=== PATIENT | male | born 1990 | race Caucasian/White ===

== ENCOUNTER 2024-10-17 11:22 | Inpatient (IN) ==
--- NOTE | 2024-10-17 11:52 | Emergency Department Note ---
Impression & Plan Vision loss, left eye, Stroke-like symptom ED Provider Note NAME: WILDER CARTER AGE: 34 SEX: M : 1990 ARRIVES VIA: Walk-In INFORMANT: Patient ED PROVIDER(S): Bert Gutierrez MD CHIEF COMPLAINT: Left eye vision changes. PLAN: Disposition: Admit MEDICAL DECISION MAKING: The patient is a pleasant 34-year-old gentleman, previously healthy who denies any chronic medical conditions other than some seasonal allergies who presents to the emergency department via walk-in for evaluation of acute onset of left eye vision changes which he describes as a translucent sheet over his entire field of vision of his left eye where he is able to see but cannot make out details of objects or read. The patient reports feeling some pressure under his left eye yesterday evening around 8 PM which he attributed to some sinus pressure and so took a half a Zyrtec (without decongestant). This morning he noticed his eye symptoms when he woke up. He attempted to look in the mirror covering an eye and then uncovering it and felt as though his left eye was small and would not react. Patient tried taking [id number] eyedrops but had no change in symptoms. He denies any headache, pain or foreign body sensation. He denies any GI or symptoms. Denies chest pain, shortness of breath. He denies any family history of blood clots, aneurysms or autoimmune disorder such as MS in young family members. He reports his grandmother did have medical problems and had a blood clot when she was older. 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 He denies any regular alcohol use. He denies smoking history. Patient reports he did have a lipid panel performed when obtaining life insurance in the past year and understood that he had mildly above normal cholesterol though he is not sure of the details. He understood from his follow-up that this was not significant and could be managed effectively with diet which he reports he had subsequently done. On evaluation the patient no acute distress, afebrile with stable vital signs. At this time the patient does have gross vision intact. Visual castaneda are also grossly intact. Pupils are equal round, reactive to light and accommodating. There is no nystagmus. There is no conjunctival or scleral injection. No proptosis. Visual acuity is significantly impaired in his left eye. 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 EKG without overt acute ischemia. CXR negative for acute cardiopulmonary process per my personal preliminary review/interpretation. WBC, H/H and platelets within normal limits. There is no neutrophilia. Chemistry without metabolic acidosis. Electrolytes and LFTs unremarkable. High-sensitivity troponin is undetectable. UA is unremarkable. ESR is 4, within normal limits. CRP is undetectable. CT of the head and CTA of the head and neck were performed were negative for ICH, ischemia or severe narrowing or occlusion of large vessels. No acute abnormality or explanation for the patient's symptoms otherwise. Bedside retinal scan was performed and per my preliminary independent interpretation there is a suspicious vascular abnormality approximately at the 12 o'clock position adjacent to the optic disc which is suspicious for possible CRAO. See below. Bedside puff tonometry was performed and demonstrates normal IOP's bilaterally with OD 15 and OS 16. Findings and recommendations for admission for further management reviewed with the patient at the bedside. Understandably, the patient had concerns regarding his health insurance and deductible and the fact that he had been in the process of switching plans which to his knowledge would result in a reset of his deductible. Case was reviewed with Dr. Lemon, [facility] neurology on-call. Appreciate consultation and recommendations. Agrees with concerns for possible CRAO and increased risk of stroke and risk for vision loss. Given the patient's initial inclination to potentially declined his admission AGAINST MEDICAL ADVICE we discussed at a minimum obtaining MRI and echo in the emergency department. If MRI does not show altered explanation such as inflammatory/demyelinating process then presumption may be that ischemic process is likely and DAPT for 3 weeks should be initiated with high-dose statin and continuing with low-dose aspirin and high-dose statin thereafter. Following further discussion and review of recommendations for admission the patient did agree with plan to be admitted. Case was discussed with Dr. Spear, [facility] hospitalist who will evaluate the patient for admission. Dr. Lemon was updated on plan for admission. Recommends obtaining MRI first before initiating DAPT. As our facility does not have ophthalmology on-call at this time, Dr. Lemon did attempt to contact [facility] ophthalmology via [employer] to share our retinal scan images for review but was unsuccessful. Further management per admitting team. Triage Nursing notes reviewed and agree them. Prior/external medical records reviewed Vital Signs: reviewed Differential diagnosis: Conjunctivitis, trauma, corneal abrasion, hyphema, glaucoma, iritis, corneal ulcer, dendrite, CRAO, CRVO, vitreous detachment, retinal detachment, as well as other pathologies. ER treatment provided: See below. Diagnostics interpreted by me: ECG: Normal sinus rhythm, 70 bpm, no ectopy, no overt ST elevation or depression, QTc 397, QRS 92. Cardiac Monitoring: An order for continuous cardiac monitoring was placed and demonstrated Normal sinus rhythm, 70 bpm, no ectopy, Laboratory studies: See below Imaging studies: See below Consultation(s): Dr. Lemon, [facility] neurology. Dr. Spear, [facility] hospitalist. HPI: Per MDM. ROS: See above HPI for pertinent positives & negatives. A total of 10 systems reviewed and were otherwise negative. VITALS:See Below PHYSICAL EXAMINATION: GENERAL: Awake, alert, well-appearing, in no distress HENT: Normocephalic, atraumatic. Oropharynx unremarkable. EYES: Normal conjunctiva. Sclera non-icteric. EOMI. No nystamgus. PEARRL. NECK: Supple. No nuchal rigidity. FROM. No JVD. RESPIRATORY: Clear to auscultation. CARDIAC: Regular rate, normal rhythm. No murmur, rubs, or gallops. Extremities warm and well perfused. Pulses equal. ABDOMEN: Soft, non-distended. No tenderness to palpation. No rebound or guarding. No masses. MUSCULOSKELETAL: Chest examination reveals no tenderness. The back is symmetrical on inspection without obvious abnormality. There is no CVA tenderness to palpation. No joint edema. LOWER EXTREMITIES: Calves are equal size bilaterally and non-tender. No edema. No discoloration. NEURO: Cranial nerves II-XII grossly intact. 5/5 strength and SILT x 4 extremities. Cerebellar function intact including [id number]-mx-bmpu, alternating palms, [id number]-[id number]. SKIN: No rash or jaundice noted. Bert Gutierrez MD Past Med/Surg History Problem List (Updated 10/18/24 @ 00:55 by Bert Gutierrez MD) Stroke-like symptom (Acute) Vision loss, left eye (Acute) Medical History History of fracture of clavicle Surgical History History of dental surgery Social History Smoking Status: Never smoker Hx Alcohol Use: Yes Alcohol type: beer Hx Substance Use: No Preferred Language: Angolan Communication Ability: Effective Senior Manager Required: No Beliefs That Will Affect Care: None Current Living Situation: Other Current Living Situation Comment: with his daughter part-time Other Information That Helps Us Care for You: No Feels Safe at Home: Yes Safety Concerns: Feels Safe At This Time Assistive Devices: None Allergies Allergies Allergy/AdvReac Type Severity Reaction Status Date / Time amoxicillin Allergy Hives Verified 02/09/23 16:19 Home Meds Home Medications Medication Instructions Recorded Confirmed cetirizine 10 mg tablet (Zyrtec) 10 mg PO DAILY PRN allergies 10/17/24 10/17/24 ibuprofen 200 mg tablet 200 mg PO DIRECTED PRN Pain 10/17/24 10/17/24 Results & Data (ED) Vital Signs Vital Signs - 24 hr 10/17/24 11:24 10/17/24 15:15 Temperature 36.6 C Temperature Source Temporal Artery Scan Pulse Rate 97 H Pulse Rate [Apical] 62 Pulse Strength Normal Respiratory Rate 16 18 Respiratory Effort / Characteristics Non-Labored Spontaneous Respiratory Depth Normal Respiratory Pattern Regular Blood Pressure 134/78 Blood Pressure [Right Arm] 122/72 Blood Pressure Mean 96 Blood Pressure Mean [Right Arm] 88 Blood Pressure Position Sitting Pulse Oximetry 97 99 Oxygen Delivery Method Room Air Room Air Sepsis Recent Fever Within 48 Hours No Sepsis New/Unexplained Change in Mental Status No Sepsis Action Taken by Nursing No Action Required Laboratory Data Attestation: I reviewed the patient's lab results. 10/17/24 12:00 10/17/24 12:00 Lab Results 10/17/24 10/17/24 10/17/24 Range/Units 11:56 12:00 12:45 WBC 6.98 (4.8-10.8) K/ul RBC 5.09 (4.70-6.10) M/uL Hgb 15.4 (14.0-18.0) g/dl Hct 45.0 (42.0-52.0) % MCV 88.4 (80.0-100.0) fL MCH 30.3 (25.0-34.0) pg MCHC 34.2 (32.0-36.0) g/dL RDW Std Deviation 39.8 (36.4-46.3) fL RDW Coeff of Jason 12.2 (11.5-14.5) % Plt Count 223 (130-400) K/uL MPV 9.7 (9.4-12.4) fL Immature Gran % (Auto) 0.1 % Neut % (Auto) 59.6 % Lymph % (Auto) 28.9 % Reagan % (Auto) 5.9 % Eos % (Auto) 4.6 % Baso % (Auto) 0.9 % Neut # (Auto) 4.16 (1.40-6.50) K/uL Lymph # (Auto) 2.02 (1.20-3.40) K/uL Reagan # (Auto) 0.41 (0.11-0.59) K/uL Eos # (Auto) 0.32 (0.00-0.50) K/uL Baso # (Auto) 0.06 (0.00-0.20) K/uL Immature Gran # (Auto) 0.01 (0.01-0.20) K/uL ESR 4 (0-15) mm/hr PT 10.9 (9.0-12.0) Seconds INR 1.0 (0.9-1.1) APTT 27 (21-31) Seconds PTT Ratio 1.0 Sodium 141 (136-145) mmol/L Potassium 4.3 (3.5-5.1) mmol/L Chloride 105 (98-107) mmol/L Carbon Dioxide 30 (21-32) mmol/L Anion Gap 6 (3-11) BUN 18 (6-23) mg/dl Creatinine 1.02 (0.6-1.4) mg/dl Est Cr Clr Drug Dosing 89.2 ml/min eGFR 97.68 BUN/Creatinine Ratio 17.6 (10-20) Glucose 86 (70-99(Fasting)) mg/dl POC Glucose 80 (70-99) mg/dl Calcium 10.0 (8.6-10.3) mg/dl Magnesium 2.2 (1.7-2.4) mg/dl Total Bilirubin 0.7 (0.2-1.0) mg/dl AST 29 (13-39) U/L ALT 24 (7-52) U/L Alkaline Phosphatase 59 (34-104) U/L Troponin I High Sens < 2.3 (0-20) pg/ml C-Reactive Protein < 0.50 (0-0.5) mg/dl Total Protein 8.0 (6.0-8.3) gm/dl Albumin 4.9 (3.4-5.0) gm/dl Globulin 3.1 (2.5-4.0) gm/dl Albumin/Globulin Ratio 1.6 (0.9-2) Urine Color Yellow Urine Appearance Cloudy A (Clear) Urine pH 8.0 H (4.5-7.5) Ur Specific [place] 1.023 (1.000-1.030) Urine Protein Negative (Negative) Urine Glucose (UA) Negative (Negative) Urine Ketones Trace H (Negative) Urine Blood Negative (Negative) Urine Nitrite Negative (Negative) Urine Bilirubin Negative (Negative) Urine Urobilinogen Negative (Negative) Ur Leukocyte Esterase Negative (Negative) Urine WBC (Auto) 0-5 (0-5) /hpf Urine RBC (Auto) 0-2 (0-2) /hpf U Hyaline Cast (Auto) 0-2 (0-2) /lpf U Epithel Cells (Auto) 0-2 (0-2) /hpf Urine Bacteria (Auto) None Seen (None Seen) Urine Comment Administered Medications Sodium Chloride (Nss) 1,000 mls @ 125 mls/hr IV .Q8H SAURABH Stop: 10/18/24 18:14 Last Admin: 10/17/24 19:52 Dose: 125 mls/hr Documented By: NRB Discontinued Medications Artificial Tears (Artificial Tears) 1 drops OPB NOW STA Stop: 10/17/24 11:48 Last Admin: 10/17/24 12:02 Dose: 1 drops Documented By: LATHA Gadobutrol (Gadobutrol 30ml Vial) 6.5 ml IV ONCE ONE Stop: 10/17/24 19:24 Last Admin: 10/17/24 19:24 Dose: 6.5 ml Documented By: JOSH Sodium Chloride (Nss) 1,000 mls @ 999 mls/hr IV .Q1H1M ONE Stop: 10/17/24 12:47 Last Infusion: 10/17/24 13:06 Dose: Infused Documented By: Admin: 10/17/24 12:02 Dose: 999 mls/hr Documented By: LATHA Ioversol (Optiray 320 125ml) 112 ml IV ONCE ONE Stop: 10/17/24 12:52 Last Admin: 10/17/24 12:51 Dose: 112 ml Documented By: JEAN Ondansetron HCl (Ondansetron Inj 2 Mg/Ml 2 Ml Vial) 4 mg IV NOW STA Stop: 10/17/24 13:16 Last Admin: 10/17/24 19:52 Dose: Not Given Documented By: NRHarshad Imaging Data Radiologist's Impression: Chest X-Ray 10/17/24 11:47 EXAM: Radiograph of the Chest 1 View INDICATION: Neurologic deficit TECHNIQUE: Frontal view of the chest. COMPARISON: No relevant prior studies available. FINDINGS: Lungs and pleural spaces: No consolidation or pulmonary edema. No pleural effusion or pneumothorax. Heart: Shape and configuration within normal limits allowing for technique. Mediastinum: Normal contour. Bones/joints: Fixation screw left clavicle intact and well-seated. Left clavicular shaft fracture healed without significant deformity. No acute osseous abnormality. Soft tissues: No abnormality noted. No radiopaque foreign body noted. Upper abdomen: No abnormality noted. IMPRESSION: No acute cardiopulmonary disease. ACT 112: N/A Electronically signed by Viv Baldwin 10-17-2024 12:[address] 10/17/24 11:47 EXAM: CT Head Without Intravenous Contrast INDICATION: Unspecified neurologic deficit TECHNIQUE: Axial computed tomography images of the head/brain without intravenous contrast. Sagittal and/or coronal reformats are provided. Sagittal and coronal reformatted images were created and reviewed. This CT exam was performed using one or more of the following dose reduction techniques: automated exposure control, adjustment of the mA and/or kV according to patient size, and/or use of iterative reconstruction technique. COMPARISON: No relevant prior studies available. FINDINGS: Limitations: None. Brain and extra-axial spaces: No abnormality noted. No hemorrhage. No significant white matter disease. No edema. No ventriculomegaly. Bones/joints: No acute changes. Soft tissues: No significant abnormality noted. Vasculature: No acute abnormality noted. Sinuses: No layering fluid in the visualized portions of the paranasal sinuses. Mastoid air cells: No mastoid effusion. Orbits: No significant abnormality noted. IMPRESSION: No abnormality noted. ACT 112: N/A Electronically signed by Viv Baldwin 10-17-2024 13:26 PM Head CTA 10/17/24 11:47 EXAM: CT Angiography Head and Neck With Intravenous Contrast INDICATION: Unspecified neurologic deficit TECHNIQUE: [place] of [place]/head and neck CT angiography protocol performed with intravenous contrast. Sagittal and coronal reformatted images were created and reviewed. This CT exam was performed using one or more of the following dose reduction techniques: automated exposure control, adjustment of the mA and/or kV according to patient size, and/or use of iterative reconstruction technique. MIP reconstructed images were created and reviewed. CONTRAST: 110ml of Optiray 320 was administered intravenously. COMPARISON: None. FINDINGS: HEAD: Right anterior cerebral artery: No abnormality noted. No occlusion or significant stenosis. Anterior communicating artery is present. No aneurysm. Right middle cerebral artery: No abnormality noted. No occlusion or significant stenosis. No aneurysm. Right posterior cerebral artery: No abnormality noted. No occlusion or significant stenosis. No aneurysm. Right intracranial internal carotid artery: No abnormality noted. No significant stenosis. No dissection or occlusion. Right intracranial vertebral artery: No abnormality noted. No significant stenosis. No dissection or occlusion. Left anterior cerebral artery: No abnormality noted. No occlusion or significant stenosis. No aneurysm. Left middle cerebral artery: No abnormality noted. No occlusion or significant stenosis. No aneurysm. Left posterior cerebral artery: No abnormality noted. No occlusion or significant stenosis. No aneurysm. Left intracranial internal carotid artery: No abnormality noted. No significant stenosis. No dissection or occlusion. Left intracranial vertebral artery: No abnormality noted. No significant stenosis. No dissection or occlusion. Basilar artery: No abnormality noted. No occlusion or significant stenosis. No aneurysm. Other vasculature: Patent dural venous sinuses. No vascular malformation. NECK: Right common carotid artery: No abnormality noted. No significant stenosis. No dissection or occlusion. Right extracranial internal carotid artery: No abnormality noted. No significant stenosis. No dissection or occlusion. Right external carotid artery: No abnormality noted. No occlusion. Right extracranial vertebral artery: No abnormality noted. No significant stenosis. No dissection or occlusion. Left common carotid artery: No abnormality noted. No significant stenosis. No dissection or occlusion. Left extracranial internal carotid artery: No abnormality noted. No significant stenosis. No dissection or occlusion. Left external carotid artery: No abnormality noted. No occlusion. Left extracranial vertebral artery: No abnormality noted. No significant stenosis. No dissection or occlusion. Thyroid: 6 x 7 mm right thyroid nodule. 3 mm left thyroid nodule with dense benign-appearing calcification noted. No further assessment required. Lung apices: No significant abnormality noted. HEAD and NECK: Bones/joints: No significant abnormality. Soft tissues: No abnormality noted. CAROTID STENOSIS REFERENCE USING NASCET CRITERIA: % ICA stenosis = (1 - narrowest ICA diameter/diameter of distal cervical ICA) x 100. Mild - <50% stenosis. Moderate - 50-69% stenosis. Severe - 70-94% stenosis. Near occlusion - 95-99% stenosis. Occluded - 100% stenosis. IMPRESSION: Normal angiographic abnormality of the head and neck. ACT 112: N/A Electronically signed by Viv Baldwin 10-17-2024 13:26 PM Neck CTA 10/17/24 11:47 EXAM: CT Angiography Head and Neck With Intravenous Contrast INDICATION: Unspecified neurologic deficit TECHNIQUE: [place] of [place]/head and neck CT angiography protocol performed with intravenous contrast. Sagittal and coronal reformatted images were created and reviewed. This CT exam was performed using one or more of the following dose reduction techniques: automated exposure control, adjustment of the mA and/or kV according to patient size, and/or use of iterative reconstruction technique. MIP reconstructed images were created and reviewed. CONTRAST: 110ml of Optiray 320 was administered intravenously. COMPARISON: None. FINDINGS: HEAD: Right anterior cerebral artery: No abnormality noted. No occlusion or significant stenosis. Anterior communicating artery is present. No aneurysm. Right middle cerebral artery: No abnormality noted. No occlusion or significant stenosis. No aneurysm. Right posterior cerebral artery: No abnormality noted. No occlusion or significant stenosis. No aneurysm. Right intracranial internal carotid artery: No abnormality noted. No significant stenosis. No dissection or occlusion. Right intracranial vertebral artery: No abnormality noted. No significant stenosis. No dissection or occlusion. Left anterior cerebral artery: No abnormality noted. No occlusion or significant stenosis. No aneurysm. Left middle cerebral artery: No abnormality noted. No occlusion or significant stenosis. No aneurysm. Left posterior cerebral artery: No abnormality noted. No occlusion or significant stenosis. No aneurysm. Left intracranial internal carotid artery: No abnormality noted. No significant stenosis. No dissection or occlusion. Left intracranial vertebral artery: No abnormality noted. No significant stenosis. No dissection or occlusion. Basilar artery: No abnormality noted. No occlusion or significant stenosis. No aneurysm. Other vasculature: Patent dural venous sinuses. No vascular malformation. NECK: Right common carotid artery: No abnormality noted. No significant stenosis. No dissection or occlusion. Right extracranial internal carotid artery: No abnormality noted. No significant stenosis. No dissection or occlusion. Right external carotid artery: No abnormality noted. No occlusion. Right extracranial vertebral artery: No abnormality noted. No significant stenosis. No dissection or occlusion. Left common carotid artery: No abnormality noted. No significant stenosis. No dissection or occlusion. Left extracranial internal carotid artery: No abnormality noted. No significant stenosis. No dissection or occlusion. Left external carotid artery: No abnormality noted. No occlusion. Left extracranial vertebral artery: No abnormality noted. No significant stenosis. No dissection or occlusion. Thyroid: 6 x 7 mm right thyroid nodule. 3 mm left thyroid nodule with dense benign-appearing calcification noted. No further assessment required. Lung apices: No significant abnormality noted. HEAD and NECK: Bones/joints: No significant abnormality. Soft tissues: No abnormality noted. CAROTID STENOSIS REFERENCE USING NASCET CRITERIA: % ICA stenosis = (1 - narrowest ICA diameter/diameter of distal cervical ICA) x 100. Mild - <50% stenosis. Moderate - 50-69% stenosis. Severe - 70-94% stenosis. Near occlusion - 95-99% stenosis. Occluded - 100% stenosis. IMPRESSION: Normal angiographic abnormality of the head and neck. ACT 112: N/A Electronically signed by Viv Baldwin 10-17-2024 13:26 PM Discharge Plan Visit Data Chief Complaint: Eye Problems Stated Complaint: BLINDNESS IN LFT EYE ED Provider: Bert Gutierrez Discharge Problem: Vision loss, left eye, Stroke-like symptom Patient Disposition: Admitted As Inpatient Condition: Serious Discharge Instructions Interventions: ED Discharge Assessment Last Done: 10/17/24 20:18
[2024-10-17 12:15] LABS: Basophils # (auto) 0.06 K/uL (0.00-0.20); Basophils % (auto) 0.9 %; Eosinophils # (auto) 0.32 K/uL (0.00-0.50); Eosinophils % (auto) 4.6 %; Hemoglobin 15.4 g/dl (14.0-18.0); Immature Granulocytes # (auto) 0.01 K/uL (0.01-0.20); Immature Granulocytes % (auto) 0.1 %; Lymphocytes # (auto) 2.02 K/uL (1.20-3.40); Lymphocytes % (auto) 28.9 %; Mean Corpuscular Hemoglobin 30.3 pg (25.0-34.0); Mean Corpuscular Hgb Conc 34.2 g/dL (32.0-36.0); Mean Corpuscular Volume 88.4 fL (80.0-100.0); Mean Platelet Volume 9.7 fL (9.4-12.4); Monocytes # (auto) 0.41 K/uL (0.11-0.59); Monocytes % (auto) 5.9 %; Neutrophils # (auto) 4.16 K/uL (1.40-6.50); Neutrophils % (auto) 59.6 %; Platelet Count 223 K/uL (130-400); RDW Coefficient of Variation 12.2 % (11.5-14.5); RDW Standard Deviation 39.8 fL (36.4-46.3); Red Blood Count 5.09 M/uL (4.70-6.10); White Blood Count 6.98 K/ul (4.8-10.8)
[2024-10-17 12:34] LABS: Alanine Aminotransferase 24 U/L (7-52); Albumin Globulin Ratio 1.6 (0.9-2); Albumin Level 4.9 gm/dl (3.4-5.0); Alkaline Phosphatase 59 U/L (34-104); Anion Gap 6 (3-11); Aspartate Aminotransferase 29 U/L (13-39); BUN Creatinine Ratio 17.6 (10-20); Bilirubin,Total 0.7 mg/dl (0.2-1.0); Blood Urea Nitrogen 18 mg/dl (6-23); Carbon Dioxide 30 mmol/L (21-32); Chloride 105 mmol/L (98-107); Creatinine Clr Calc Pharmacy 89.2 ml/min; Globulin 3.1 gm/dl (2.5-4.0); Glucose 86 mg/dl (70-99(Fasting)); Magnesium 2.2 mg/dl (1.7-2.4); Potassium 4.3 mmol/L (3.5-5.1); Sodium 141 mmol/L (136-145)
[2024-10-17 12:40] LABS: Troponin I High Sensitivity < 2.3 pg/ml (0-20)
--- NOTE | 2024-10-17 12:41 | XRay Report ---
EXAM: Radiograph of the Chest 1 View INDICATION: Neurologic deficit TECHNIQUE: Frontal view of the chest. COMPARISON: No relevant prior studies available. FINDINGS: Lungs and pleural spaces: No consolidation or pulmonary edema. No pleural effusion or pneumothorax. Heart: Shape and configuration within normal limits allowing for technique. Mediastinum: Normal contour. Bones/joints: Fixation screw left clavicle intact and well-seated. Left clavicular shaft fracture healed without significant deformity. No acute osseous abnormality. Soft tissues: No abnormality noted. No radiopaque foreign body noted. Upper abdomen: No abnormality noted. IMPRESSION: No acute cardiopulmonary disease. ACT 112: N/A Electronically signed by Viv Baldwin 10-17-2024 12:41 PM
[2024-10-17 12:43] LABS: Partial Thromboplastin Time 27 Seconds (21-31); Prothrombin Time 10.9 Seconds (9.0-12.0)
[2024-10-17 13:03] LABS: Appearance Urine Cloudy (Clear); Bacteria Urine Automated None Seen (None Seen); Bilirubin Urine Negative (Negative); Blood Urine Negative (Negative); Cast Urine Automated 0-2 /lpf (0-2); Color Urine Yellow; Epithelial Cell Urine Auto 0-2 /hpf (0-2); Glucose Urine UA Negative (Negative); Ketones Urine Trace (Negative); Leukocyte Esterase Urine Negative (Negative); Nitrite Urine Negative (Negative); Protein Urine Negative (Negative); RBC Urine Automated 0-2 /hpf (0-2); Specific Gravity Urine 1.023 (1.000-1.030); Urobilinogen Urine Negative (Negative); WBC Urine Automated 0-5 /hpf (0-5)
--- NOTE | 2024-10-17 13:27 | CT Scan Report ---
EXAM: CT Head Without Intravenous Contrast INDICATION: Unspecified neurologic deficit TECHNIQUE: Axial computed tomography images of the head/brain without intravenous contrast. Sagittal and/or coronal reformats are provided. Sagittal and coronal reformatted images were created and reviewed. This CT exam was performed using one or more of the following dose reduction techniques: automated exposure control, adjustment of the mA and/or kV according to patient size, and/or use of iterative reconstruction technique. COMPARISON: No relevant prior studies available. FINDINGS: Limitations: None. Brain and extra-axial spaces: No abnormality noted. No hemorrhage. No significant white matter disease. No edema. No ventriculomegaly. Bones/joints: No acute changes. Soft tissues: No significant abnormality noted. Vasculature: No acute abnormality noted. Sinuses: No layering fluid in the visualized portions of the paranasal sinuses. Mastoid air cells: No mastoid effusion. Orbits: No significant abnormality noted. IMPRESSION: No abnormality noted. ACT 112: N/A Electronically signed by Viv Baldwin 10-17-2024 13:26 PM
--- NOTE | 2024-10-17 13:27 | CT Scan Report ---
EXAM: CT Angiography Head and Neck With Intravenous Contrast INDICATION: Unspecified neurologic deficit TECHNIQUE: [place] [facility] [place]/head and neck CT angiography protocol performed with intravenous contrast. Sagittal and coronal reformatted images were created and reviewed. This CT exam was performed using one or more of the following dose reduction techniques: automated exposure control, adjustment of the mA and/or kV according to patient size, and/or use of iterative reconstruction technique. MIP reconstructed images were created and reviewed. CONTRAST: 110ml of Optiray 320 was administered intravenously. COMPARISON: None. FINDINGS: HEAD: Right anterior cerebral artery: No abnormality noted. No occlusion or significant stenosis. Anterior communicating artery is present. No aneurysm. Right middle cerebral artery: No abnormality noted. No occlusion or significant stenosis. No aneurysm. Right posterior cerebral artery: No abnormality noted. No occlusion or significant stenosis. No aneurysm. Right intracranial internal carotid artery: No abnormality noted. No significant stenosis. No dissection or occlusion. Right intracranial vertebral artery: No abnormality noted. No significant stenosis. No dissection or occlusion. Left anterior cerebral artery: No abnormality noted. No occlusion or significant stenosis. No aneurysm. Left middle cerebral artery: No abnormality noted. No occlusion or significant stenosis. No aneurysm. Left posterior cerebral artery: No abnormality noted. No occlusion or significant stenosis. No aneurysm. Left intracranial internal carotid artery: No abnormality noted. No significant stenosis. No dissection or occlusion. Left intracranial vertebral artery: No abnormality noted. No significant stenosis. No dissection or occlusion. Basilar artery: No abnormality noted. No occlusion or significant stenosis. No aneurysm. Other vasculature: Patent dural venous sinuses. No vascular malformation. NECK: Right common carotid artery: No abnormality noted. No significant stenosis. No dissection or occlusion. Right extracranial internal carotid artery: No abnormality noted. No significant stenosis. No dissection or occlusion. Right external carotid artery: No abnormality noted. No occlusion. Right extracranial vertebral artery: No abnormality noted. No significant stenosis. No dissection or occlusion. Left common carotid artery: No abnormality noted. No significant stenosis. No dissection or occlusion. Left extracranial internal carotid artery: No abnormality noted. No significant stenosis. No dissection or occlusion. Left external carotid artery: No abnormality noted. No occlusion. Left extracranial vertebral artery: No abnormality noted. No significant stenosis. No dissection or occlusion. Thyroid: 6 x 7 mm right thyroid nodule. 3 mm left thyroid nodule with dense benign-appearing calcification noted. No further assessment required. Lung apices: No significant abnormality noted. HEAD and NECK: Bones/joints: No significant abnormality. Soft tissues: No abnormality noted. CAROTID STENOSIS REFERENCE USING NASCET CRITERIA: % ICA stenosis = (1 - narrowest ICA diameter/diameter of distal cervical ICA) x 100. Mild - <50% stenosis. Moderate - 50-69% stenosis. Severe - 70-94% stenosis. Near occlusion - 95-99% stenosis. Occluded - 100% stenosis. IMPRESSION: Normal angiographic abnormality of the head and neck. ACT 112: N/A Electronically signed by Viv Baldwin 10-17-2024 13:26 PM
[2024-10-17 13:44] LABS: C Reactive Protein < 0.50 mg/dl (0-0.5)
--- NOTE | 2024-10-17 18:13 | History & Physical Report ---
Date of Service October 17, 2024 Assessment & Plan (1) Vision loss, left eye: Plan: Presented with loss of vision in left eye without any other signs and or symptoms of stroke. 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 Retinal scan showed possible lesion involving retinal vasculature near to the optic disc--could be a small clot, minor hemorrhage or cholesterol crystals Differential could be strokelike symptoms Will get MRI of the brain with and without contrast, echo of the heart, lipid profile So far CTA of the head and neck have been unremarkable Coagulation studies have been sent Neuroconsult will be placed and depending on the results of the MRI we will start aspirin and/or Plavix Will start some intravenous fluid to avoid any contrast-induced nephropathy DVT prophylaxis SCDs CODE STATUS Full History of Present Illness Chief Complaint: Visual loss left eye Primary Care Provider: NO PCP He is a 34 years old healthy male without any significant past medical history apparently has had left maxillary sinus pressure last evening and took half of Zyrtec and went to sleep. He woke up this morning and noticed to have a bright spot in his left eye at around 9 AM. By spot he described as if you are looking at the sun and after he had taken of the lesion from some still he can see the spot in front of your left eye. He is sinus pain improved and I spot gradually increased to certain extent that his vision in the left eye deteriorated that he could not read any normal reading with his left eye at all. He did not have any headache, any watering from the eye, any nausea or vomiting, any numbness and or tingling involving extremities, any weakness in any of the body and he did not have any palpitation, shortness of breath, nausea vomiting and/or dizziness. He came to the emergency room for further evaluation of her problem and since coming to the emergency room at around 11 AM this vision in the left eye has been improving and during my examination he still has some scotomas and he cannot read without missing a few letters and has only blurred. He can still make out reasonable assessment with both eyes. He has a family history of blood clot and he is a non-smoker and not been taking any other medications [id number] except did take an ibuprofen occasionally. He was admitted to telemetry unit for continuation of care after discussing with the on-call neurologist attending. Allergies Allergy/AdvReac Type Severity Reaction Status Date / Time amoxicillin Allergy Hives Verified 02/09/23 16:19 Home Medications Medication Instructions Recorded Confirmed Type cetirizine 10 mg tablet (Zyrtec) 10 mg PO DAILY PRN allergies 10/17/24 10/17/24 History ibuprofen 200 mg tablet 200 mg PO DIRECTED PRN Pain 10/17/24 10/17/24 History Past Med/Surg History Problem List (Updated 10/17/24 @ 18:07 by Agus Spear MD) Vision loss, left eye Medical History History of fracture of clavicle No pertinent past medical history Surgical History History of dental surgery Social History Smoking Status: Never smoker Preferred Language: Albanian Feels Safe at Home: Yes Review of Systems Review of Systems: All systems reviewed and are unremarkable except as noted below Physical Exam Physical Exam: Bandage of the bed without any acute distress Constitutional: average body habitus; not ill appearing Eyes: PERRL, conjunctivae normal, anicteric sclerae ENMT: external ear and nose normal, oropharynx normal Neck: trachea midline, no thyromegaly Respiratory: normal respiratory effort, lungs clear to auscultation Cardiovascular: Rate/Rhythm: regular rate and regular rhythm; not tachycardic Heart Sounds: normal S1 and normal S2; no murmur Extremities: no edema Gastrointestinal (Abdomen): Inspection/Auscultation: normal bowel sounds; abdomen not distended Percussion/Palpation: abdomen soft; abdomen nontender Musculoskeletal: No acute arthritis involving any of the joint Skin: no rashes, warm and dry Neurologic: normal touch/pain/proprioception and moves all extremities; no focal motor deficits Visual examination ongoing for depression normal. Left visual field shows scotomas. Psychiatric: A+Ox3, euthymic affect Lymphatic: no cervical or axillary lymphadenopathy Results & Data Results & Data Vital Signs (Past 12 Hours) Vital Signs Temp Pulse Pulse Resp BP BP Pulse Ox 10/17/24 15:15 62 18 122/72 99 10/17/24 11:24 36.6 C 97 H 16 134/78 97 O2 Del Method 10/17/24 15:15 Room Air 10/17/24 11:24 Room Air Laboratory Results Short CBC 10/17/24 Range/Units 12:00 WBC 6.98 (4.8-10.8) K/ul Hgb 15.4 (14.0-18.0) g/dl Hct 45.0 (42.0-52.0) % Plt Count 223 (130-400) K/uL BMP 10/17/24 12:00 Sodium 141 Potassium 4.3 Chloride 105 Carbon Dioxide 30 BUN 18 Creatinine 1.02 Glucose 86 Calcium 10.0 Liver Function 10/17/24 Range/Units 12:00 Total Bilirubin 0.7 (0.2-1.0) mg/dl AST 29 (13-39) U/L ALT 24 (7-52) U/L Alkaline Phosphatase 59 (34-104) U/L Albumin 4.9 (3.4-5.0) gm/dl Urine 10/17/24 Range/Units 12:45 Urine Color Yellow Urine Appearance Cloudy A (Clear) Urine pH 8.0 H (4.5-7.5) Ur Specific Banks 1.023 (1.000-1.030) Urine Protein Negative (Negative) Urine Glucose (UA) Negative (Negative) Diagnostic Findings Laboratory Results WBC 6.98 K/ul (4.8-10.8) 10/17/24 12:00 RBC 5.09 M/uL (4.70-6.10) 10/17/24 12:00 Hgb 15.4 g/dl (14.0-18.0) 10/17/24 12:00 Hct 45.0 % (42.0-52.0) 10/17/24 12:00 MCV 88.4 fL (80.0-100.0) 10/17/24 12:00 MCH 30.3 pg (25.0-34.0) 10/17/24 12:00 MCHC 34.2 g/dL (32.0-36.0) 10/17/24 12:00 RDW Std Deviation 39.8 fL (36.4-46.3) 10/17/24 12:00 RDW Coeff of Jason 12.2 % (11.5-14.5) 10/17/24 12:00 Plt Count 223 K/uL (130-400) 10/17/24 12:00 MPV 9.7 fL (9.4-12.4) 10/17/24 12:00 Immature Gran % (Auto) 0.1 % 10/17/24 12:00 Neut % (Auto) 59.6 % 10/17/24 12:00 Lymph % (Auto) 28.9 % 10/17/24 12:00 Hill % (Auto) 5.9 % 10/17/24 12:00 Eos % (Auto) 4.6 % 10/17/24 12:00 Baso % (Auto) 0.9 % 10/17/24 12:00 Neut # (Auto) 4.16 K/uL (1.40-6.50) 10/17/24 12:00 Lymph # (Auto) 2.02 K/uL (1.20-3.40) 10/17/24 12:00 Hill # (Auto) 0.41 K/uL (0.11-0.59) 10/17/24 12:00 Eos # (Auto) 0.32 K/uL (0.00-0.50) 10/17/24 12:00 Baso # (Auto) 0.06 K/uL (0.00-0.20) 10/17/24 12:00 Immature Gran # (Auto) 0.01 K/uL (0.01-0.20) 10/17/24 12:00 ESR 4 mm/hr (0-15) 10/17/24 12:00 PT 10.9 Seconds (9.0-12.0) 10/17/24 12:00 INR 1.0 (0.9-1.1) 10/17/24 12:00 APTT 27 Seconds (21-31) 10/17/24 12:00 PTT Ratio 1.0 10/17/24 12:00 Sodium 141 mmol/L (136-145) 10/17/24 12:00 Potassium 4.3 mmol/L (3.5-5.1) 10/17/24 12:00 Chloride 105 mmol/L (98-107) 10/17/24 12:00 Carbon Dioxide 30 mmol/L (21-32) 10/17/24 12:00 Anion Gap 6 (3-11) 10/17/24 12:00 BUN 18 mg/dl (6-23) 10/17/24 12:00 Creatinine 1.02 mg/dl (0.6-1.4) 10/17/24 12:00 Est Cr Clr Drug Dosing 89.2 ml/min 10/17/24 12:00 eGFR 97.68 10/17/24 12:00 BUN/Creatinine Ratio 17.6 (10-20) 10/17/24 12:00 Glucose 86 mg/dl (70-99(Fasting)) 10/17/24 12:00 POC Glucose 80 mg/dl (70-99) 10/17/24 11:56 Calcium 10.0 mg/dl (8.6-10.3) 10/17/24 12:00 Magnesium 2.2 mg/dl (1.7-2.4) 10/17/24 12:00 Total Bilirubin 0.7 mg/dl (0.2-1.0) 10/17/24 12:00 AST 29 U/L (13-39) 10/17/24 12:00 ALT 24 U/L (7-52) 10/17/24 12:00 Alkaline Phosphatase 59 U/L (34-104) 10/17/24 12:00 Troponin I High Sens < 2.3 pg/ml (0-20) 10/17/24 12:00 C-Reactive Protein < 0.50 mg/dl (0-0.5) 10/17/24 12:00 Total Protein 8.0 gm/dl (6.0-8.3) 10/17/24 12:00 Albumin 4.9 gm/dl (3.4-5.0) 10/17/24 12:00 Globulin 3.1 gm/dl (2.5-4.0) 10/17/24 12:00 Albumin/Globulin Ratio 1.6 (0.9-2) 10/17/24 12:00 Urine Color Yellow 10/17/24 12:45 Urine Appearance Cloudy (Clear) A 10/17/24 12:45 Urine pH 8.0 (4.5-7.5) H 10/17/24 12:45 Ur Specific Banks 1.023 (1.000-1.030) 10/17/24 12:45 Urine Protein Negative (Negative) 10/17/24 12:45 Urine Glucose (UA) Negative (Negative) 10/17/24 12:45 Urine Ketones Trace (Negative) H 10/17/24 12:45 Urine Blood Negative (Negative) 10/17/24 12:45 Urine Nitrite Negative (Negative) 10/17/24 12:45 Urine Bilirubin Negative (Negative) 10/17/24 12:45 Urine Urobilinogen Negative (Negative) 10/17/24 12:45 Ur Leukocyte Esterase Negative (Negative) 10/17/24 12:45 Urine WBC (Auto) 0-5 /hpf (0-5) 10/17/24 12:45 Urine RBC (Auto) 0-2 /hpf (0-2) 10/17/24 12:45 U Hyaline Cast (Auto) 0-2 /lpf (0-2) 10/17/24 12:45 U Epithel Cells (Auto) 0-2 /hpf (0-2) 10/17/24 12:45 Urine Bacteria (Auto) None Seen (None Seen) 10/17/24 12:45 Urine Comment 10/17/24 12:45 Impressions Chest X-Ray 10/17/24 11:47 EXAM: Radiograph of the Chest 1 View INDICATION: Neurologic deficit TECHNIQUE: Frontal view of the chest. COMPARISON: No relevant prior studies available. FINDINGS: Lungs and pleural spaces: No consolidation or pulmonary edema. No pleural effusion or pneumothorax. Heart: Shape and configuration within normal limits allowing for technique. Mediastinum: Normal contour. Bones/joints: Fixation screw left clavicle intact and well-seated. Left clavicular shaft fracture healed without significant deformity. No acute osseous abnormality. Soft tissues: No abnormality noted. No radiopaque foreign body noted. Upper abdomen: No abnormality noted. IMPRESSION: No acute cardiopulmonary disease. ACT 112: N/A Electronically signed by Viv Baldwin 10-17-2024 12:[address] 10/17/24 11:47 EXAM: CT Head Without Intravenous Contrast INDICATION: Unspecified neurologic deficit TECHNIQUE: Axial computed tomography images of the head/brain without intravenous contrast. Sagittal and/or coronal reformats are provided. Sagittal and coronal reformatted images were created and reviewed. This CT exam was performed using one or more of the following dose reduction techniques: automated exposure control, adjustment of the mA and/or kV according to patient size, and/or use of iterative reconstruction technique. COMPARISON: No relevant prior studies available. FINDINGS: Limitations: None. Brain and extra-axial spaces: No abnormality noted. No hemorrhage. No significant white matter disease. No edema. No ventriculomegaly. Bones/joints: No acute changes. Soft tissues: No significant abnormality noted. Vasculature: No acute abnormality noted. Sinuses: No layering fluid in the visualized portions of the paranasal sinuses. Mastoid air cells: No mastoid effusion. Orbits: No significant abnormality noted. IMPRESSION: No abnormality noted. ACT 112: N/A Electronically signed by Viv Baldwin 10-17-2024 13:26 PM Head CTA 10/17/24 11:47 EXAM: CT Angiography Head and Neck With Intravenous Contrast INDICATION: Unspecified neurologic deficit TECHNIQUE: [place] [facility] [place]/head and neck CT angiography protocol performed with intravenous contrast. Sagittal and coronal reformatted images were created and reviewed. This CT exam was performed using one or more of the following dose reduction techniques: automated exposure control, adjustment of the mA and/or kV according to patient size, and/or use of iterative reconstruction technique. MIP reconstructed images were created and reviewed. CONTRAST: 110ml of Optiray 320 was administered intravenously. COMPARISON: None. FINDINGS: HEAD: Right anterior cerebral artery: No abnormality noted. No occlusion or significant stenosis. Anterior communicating artery is present. No aneurysm. Right middle cerebral artery: No abnormality noted. No occlusion or significant stenosis. No aneurysm. Right posterior cerebral artery: No abnormality noted. No occlusion or significant stenosis. No aneurysm. Right intracranial internal carotid artery: No abnormality noted. No significant stenosis. No dissection or occlusion. Right intracranial vertebral artery: No abnormality noted. No significant stenosis. No dissection or occlusion. Left anterior cerebral artery: No abnormality noted. No occlusion or significant stenosis. No aneurysm. Left middle cerebral artery: No abnormality noted. No occlusion or significant stenosis. No aneurysm. Left posterior cerebral artery: No abnormality noted. No occlusion or significant stenosis. No aneurysm. Left intracranial internal carotid artery: No abnormality noted. No significant stenosis. No dissection or occlusion. Left intracranial vertebral artery: No abnormality noted. No significant stenosis. No dissection or occlusion. Basilar artery: No abnormality noted. No occlusion or significant stenosis. No aneurysm. Other vasculature: Patent dural venous sinuses. No vascular malformation. NECK: Right common carotid artery: No abnormality noted. No significant stenosis. No dissection or occlusion. Right extracranial internal carotid artery: No abnormality noted. No significant stenosis. No dissection or occlusion. Right external carotid artery: No abnormality noted. No occlusion. Right extracranial vertebral artery: No abnormality noted. No significant stenosis. No dissection or occlusion. Left common carotid artery: No abnormality noted. No significant stenosis. No dissection or occlusion. Left extracranial internal carotid artery: No abnormality noted. No significant stenosis. No dissection or occlusion. Left external carotid artery: No abnormality noted. No occlusion. Left extracranial vertebral artery: No abnormality noted. No significant stenosis. No dissection or occlusion. Thyroid: 6 x 7 mm right thyroid nodule. 3 mm left thyroid nodule with dense benign-appearing calcification noted. No further assessment required. Lung apices: No significant abnormality noted. HEAD and NECK: Bones/joints: No significant abnormality. Soft tissues: No abnormality noted. CAROTID STENOSIS REFERENCE USING NASCET CRITERIA: % ICA stenosis = (1 - narrowest ICA diameter/diameter of distal cervical ICA) x 100. Mild - <50% stenosis. Moderate - 50-69% stenosis. Severe - 70-94% stenosis. Near occlusion - 95-99% stenosis. Occluded - 100% stenosis. IMPRESSION: Normal angiographic abnormality of the head and neck. ACT 112: N/A Electronically signed by Viv Baldwin 10-17-2024 13:26 PM Neck CTA 10/17/24 11:47 EXAM: CT Angiography Head and Neck With Intravenous Contrast INDICATION: Unspecified neurologic deficit TECHNIQUE: [place] [facility] [place]/head and neck CT angiography protocol performed with intravenous contrast. Sagittal and coronal reformatted images were created and reviewed. This CT exam was performed using one or more of the following dose reduction techniques: automated exposure control, adjustment of the mA and/or kV according to patient size, and/or use of iterative reconstruction technique. MIP reconstructed images were created and reviewed. CONTRAST: 110ml of Optiray 320 was administered intravenously. COMPARISON: None. FINDINGS: HEAD: Right anterior cerebral artery: No abnormality noted. No occlusion or significant stenosis. Anterior communicating artery is present. No aneurysm. Right middle cerebral artery: No abnormality noted. No occlusion or significant stenosis. No aneurysm. Right posterior cerebral artery: No abnormality noted. No occlusion or significant stenosis. No aneurysm. Right intracranial internal carotid artery: No abnormality noted. No significant stenosis. No dissection or occlusion. Right intracranial vertebral artery: No abnormality noted. No significant stenosis. No dissection or occlusion. Left anterior cerebral artery: No abnormality noted. No occlusion or significant stenosis. No aneurysm. Left middle cerebral artery: No abnormality noted. No occlusion or significant stenosis. No aneurysm. Left posterior cerebral artery: No abnormality noted. No occlusion or significant stenosis. No aneurysm. Left intracranial internal carotid artery: No abnormality noted. No significant stenosis. No dissection or occlusion. Left intracranial vertebral artery: No abnormality noted. No significant stenosis. No dissection or occlusion. Basilar artery: No abnormality noted. No occlusion or significant stenosis. No aneurysm. Other vasculature: Patent dural venous sinuses. No vascular malformation. NECK: Right common carotid artery: No abnormality noted. No significant stenosis. No dissection or occlusion. Right extracranial internal carotid artery: No abnormality noted. No significant stenosis. No dissection or occlusion. Right external carotid artery: No abnormality noted. No occlusion. Right extracranial vertebral artery: No abnormality noted. No significant stenosis. No dissection or occlusion. Left common carotid artery: No abnormality noted. No significant stenosis. No dissection or occlusion. Left extracranial internal carotid artery: No abnormality noted. No significant stenosis. No dissection or occlusion. Left external carotid artery: No abnormality noted. No occlusion. Left extracranial vertebral artery: No abnormality noted. No significant stenosis. No dissection or occlusion. Thyroid: 6 x 7 mm right thyroid nodule. 3 mm left thyroid nodule with dense benign-appearing calcification noted. No further assessment required. Lung apices: No significant abnormality noted. HEAD and NECK: Bones/joints: No significant abnormality. Soft tissues: No abnormality noted. CAROTID STENOSIS REFERENCE USING NASCET CRITERIA: % ICA stenosis = (1 - narrowest ICA diameter/diameter of distal cervical ICA) x 100. Mild - <50% stenosis. Moderate - 50-69% stenosis. Severe - 70-94% stenosis. Near occlusion - 95-99% stenosis. Occluded - 100% stenosis. IMPRESSION: Normal angiographic abnormality of the head and neck. ACT 112: N/A Electronically signed by Viv Baldwin 10-17-2024 13:26 PM Code Status & VTE Plan VTE Prophylaxis Plan VTE Prophylaxis will be ordered: Yes
--- NOTE | 2024-10-17 22:02 | Magnetic Resonance Report ---
EXAM: MR brain wo/w con CLINICAL HISTORY: Visual loss, R/O clot TECHNIQUE: MRI of the brain was performed with and without intravenous contrast administration. Sequences obtained include pre-contrast and post-contrast T1-weighted, T2-weighted, FLAIR (Fluid-Attenuated Inversion Recovery), DWI (Diffusion-Weighted Imaging), and ADC (Apparent Diffusion Coefficient) sequences. COMPARISON: CT head done earlier today 10/17/2024 12:07:00 CONTRACT ADMINISTRATION MANAGER was reviewed. FINDINGS: Brain Parenchyma: No evidence of acute infarction or hemorrhage. Rodriguez-white matter differentiation is preserved. No abnormal signal intensity lesions identified. Post-Contrast Findings: No abnormal enhancement of the brain parenchyma or meninges. Ventricles and Sulci: Ventricular system is within normal limits without evidence of hydrocephalus. Sulci and cisternal spaces are age-appropriate. Brainstem and Cerebellum: Normal appearance of the brainstem and cerebellum without focal lesions or abnormal enhancement. A small foci of CSF signal are noticed at the midbrain and left basal ganglia; normal perivascular spaces. Vessels: Intracranial vessels appear normal without evidence of vascular malformations or aneurysms. Skull and Calvarium: No evidence of skull vault lesions or abnormal marrow signal within the calvarium. IMPRESSION: 1. Normal brain parenchyma and structures. 2. No evidence of acute intracranial pathology, acute infarcts or abnormal contrast enhancement. Electronically signed by Rajeev Horn 10-17-2024 10:01 PM
[2024-10-18 05:37] LABS: Basophils # (auto) 0.05 K/uL (0.00-0.20); Basophils % (auto) 0.7 %; Eosinophils # (auto) 0.39 K/uL (0.00-0.50); Eosinophils % (auto) 5.7 %; Hematocrit (blood only) 37.6 % (42.0-52.0); Hemoglobin 12.6 g/dl (14.0-18.0); Immature Granulocytes # (auto) 0.01 K/uL (0.01-0.20); Immature Granulocytes % (auto) 0.1 %; Lymphocytes # (auto) 2.55 K/uL (1.20-3.40); Mean Corpuscular Hgb Conc 33.5 g/dL (32.0-36.0); Mean Corpuscular Volume 89.5 fL (80.0-100.0); Mean Platelet Volume 9.9 fL (9.4-12.4); Monocytes # (auto) 0.36 K/uL (0.11-0.59); Monocytes % (auto) 5.2 %; Neutrophils # (auto) 3.53 K/uL (1.40-6.50); Neutrophils % (auto) 51.3 %; Platelet Count 166 K/uL (130-400); RDW Coefficient of Variation 12.3 % (11.5-14.5); RDW Standard Deviation 40.2 fL (36.4-46.3); White Blood Count 6.89 K/ul (4.8-10.8)
[2024-10-18 05:52] LABS: BUN Creatinine Ratio 13.5 (10-20); Calcium 8.5 mg/dl (8.6-10.3); Chol HDL Ratio 3.9 (0-5); Creatinine Clr Calc Pharmacy 96.4 ml/min; Potassium 4.5 mmol/L (3.5-5.1)
[2024-10-18 06:08] LABS: Thyroid Stimulating Hormone 4.366 uIu/ml (0.300-4.500)
[2024-10-18 08:35] VITALS: TEMP 98.1
[2024-10-18 11:58] VITALS: BP 121/80; PULSE 57; RESP 18; O2SAT 99
--- NOTE | 2024-10-18 12:05 | Neurology Consultation ---
Date of Consultation October 18, 2024 Assessment & Plan (1) Vision loss, left eye: -- Will attempt to have patient scheduled in ophthalmology clinic this week. Plan 34 yo man w/ no medical history presenting for evaluation of L eye visual changes x 1 day that worsened and is now improving. Retinal images are possibly consistent with CRVO. MRi/CTA are negative for stroke or vessel disease. MRI orbits looks unremarkable per my view. This condition is primarily managed by ophthalmology. Pt should be seen soon (will plan to schedule and appointment either through [facility] or provider in [facility]). No further neuro recs, no medication changes. Telehealth Consultation Telehealth Information Telehealth Information: I performed this visit using a real-time telehealth connection between my location and the patients location ([facility]). After connecting through interactive tele-video, patient was identified by name and date of and/or wristband check.Patient (or authorized healthcare vaccine customer representative) was informed that this was a telemedicine visit and it was being conducted confidentially over secure lines. My office door was closed and no one else was present in the room with me.Patient (or authorized healthcare vaccine customer representative) provided consent to proceed with the visit, expressed an understanding of privacy and security of the telemedicine visit, and gave permission to have a hospital vaccine customer representative in the room in order to assist with the visit and to conduct portions of the visit, as needed. I informed the patient (or authorized healthcare vaccine customer representative) that I reviewed their record and presented the opportunity for them to ask any questions regarding the visit today. The patient agreed to participate. History of Present Illness Reason for Consultation: Left Eye vision loss Requesting Physician: Dr. Spear Attending Physician: Agus Spear MD History of Present Illness Pt states he woke up Friday morning with left eye vision changes, it was obscured, throughout the day it worsened to the point 97% of his vision was affected, this morning it is slightly better, mostly the center of his vision is affected. Allergies Allergy/AdvReac Type Severity Reaction Status Date / Time amoxicillin Allergy Hives Verified 02/09/23 16:19 Home Medications Medication Instructions Recorded Confirmed Type cetirizine 10 mg tablet (Zyrtec) 10 mg PO DAILY PRN allergies 10/17/24 10/17/24 History ibuprofen 200 mg tablet 200 mg PO DIRECTED PRN Pain 10/17/24 10/17/24 History Patient History Medical History History of fracture of clavicle Surgical History History of dental surgery Social History Smoking Status: Never smoker Hx Alcohol Use: Yes Alcohol type: beer Hx Substance Use: No Preferred Language: Frisian Communication Ability: Effective 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 No gaze deviaion, no pupil abnormality, no facial droop. Able to lift all extremities against gravity. Results & Data Vital Signs (Past 12 Hours) Vital Signs Temp Pulse Pulse Resp BP Pulse Ox O2 Del Method 10/18/24 11:57 36.7 C 57 L 18 121/80 99 Room Air 10/18/24 08:34 36.7 C 58 L 20 123/75 98 Room Air 10/18/24 05:38 44 L 10/18/24 02:36 36.6 C 53 L 16 108/68 99 Room Air Diagnostic Findings MRI Brain - no acute findings CTA H/N - no atherosclerosis or significant vessel disease
--- NOTE | 2024-10-18 14:56 | Hospitalist Progress Note ---
Date of Service October 18, 2024 Assessment & Plan (1) Vision loss, left eye: Plan: Presented with loss of vision in left eye without any other signs and or symptoms of stroke. 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 Retinal scan showed possible lesion involving retinal vasculature near to the optic disc--could be a small clot, minor hemorrhage or cholesterol crystals Differential could be strokelike symptoms Will get MRI of the brain with and without contrast, echo of the heart, lipid profile So far CTA of the head and neck have been unremarkable Coagulation studies have been sent Neuroconsult will be placed and depending on the results of the MRI we will start aspirin and/or Plavix Will start some intravenous fluid to avoid any contrast-induced nephropathy Has had MRI of the brain which was unremarkable and MRI of the orbit seems to be okay as per her neurologist in [place] Lipid profile was unremarkable Echo Showednormal LV wall thickness and function with EF 55 to 60%, LV wall motion is normal, no significant valvular disease, the interatrial septum was evaluated with administration of agitated saline contrast and the contrast injection was suboptimal and limited resolution noted but there does seem to be suggestive of at least mild right to left interatrial shunt.--Likely not the cause for central retinal vein occlusion He will be discharged home this afternoon Outpatient correctional counselor will be contacting him for an appointment as soon as tomorrow He was advised not to take any aspirin DVT prophylaxis SCDs CODE STATUS Full Admission and Anticipated Discharge Date Admission Date: October 17, 2024 Subjective 10/18/2024 The patient was seen and examined in telemetry unit His left eye vision loss has improved a lot Only has occasional scotomas in the visual field Denies any other significant symptoms Review of Systems Review of Systems: All systems reviewed and are unremarkable except as noted below Physical Exam Physical Exam: Bandage of the bed without any acute distress Constitutional: average body habitus; not ill appearing Eyes: PERRL, conjunctivae normal, anicteric sclerae ENMT: external ear and nose normal, oropharynx normal Neck: trachea midline, no thyromegaly Respiratory: normal respiratory effort, lungs clear to auscultation Cardiovascular: Rate/Rhythm: regular rate and regular rhythm; not tachycardic Heart Sounds: normal S1 and normal S2; no murmur Extremities: no edema Gastrointestinal (Abdomen): Inspection/Auscultation: normal bowel sounds; abdomen not distended Percussion/Palpation: abdomen soft; abdomen nontender Skin: no rashes, warm and dry Neurologic: normal touch/pain/proprioception and moves all extremities; no focal motor deficits Psychiatric: A+Ox3, euthymic affect Lymphatic: no cervical or axillary lymphadenopathy Results & Data Results & Data Vital Signs (Past 12 Hours) Vital Signs Temp Pulse Pulse Resp BP Pulse Ox O2 Del Method 10/18/24 11:57 36.7 C 57 L 18 121/80 99 Room Air 10/18/24 08:34 36.7 C 58 L 20 123/75 98 Room Air 10/18/24 05:38 44 L Laboratory Results Short CBC 10/18/24 Range/Units 05:06 WBC 6.89 (4.8-10.8) K/ul Hgb 12.6 L (14.0-18.0) g/dl Hct 37.6 L (42.0-52.0) % Plt Count 166 (130-400) K/uL BMP 10/18/24 05:06 Sodium 140 Potassium 4.5 Chloride 110 H Carbon Dioxide 27 BUN 13 Creatinine 0.96 Glucose 92 Calcium 8.5 L Medications Administered Current Inpatient Medications Sodium Chloride (Nss) 1,000 mls @ 125 mls/hr IV .Q8H SAURABH Stop: 10/18/24 18:14 Last Infusion: 10/18/24 10:02 Dose: Infused
--- NOTE | 2024-10-18 16:34 | Discharge Summary ---
Date of Service October 18, 2024 Admission HPI Per Admitting Provider He is a 34 years old healthy male without any significant past medical history apparently has had left maxillary sinus pressure last evening and took half of Zyrtec and went to sleep. He woke up this morning and noticed to have a bright spot in his left eye at around 9 AM. By spot he described as if you are looking at the sun and after he had taken of the lesion from some still he can see the spot in front of your left eye. He is sinus pain improved and I spot gradually increased to certain extent that his vision in the left eye deteriorated that he could not read any normal reading with his left eye at all. He did not have any headache, any watering from the eye, any nausea or vomiting, any numbness and or tingling involving extremities, any weakness in any of the body and he did not have any palpitation, shortness of breath, nausea vomiting and/or dizziness. He came to the emergency room for further evaluation of her problem and since coming to the emergency room at around 11 AM this vision in the left eye has been improving and during my examination he still has some scotomas and he cannot read without missing a few letters and has only blurred. He can still make out reasonable assessment with both eyes. He has a family history of blood clot and he is a non-smoker and not been taking any other medications [id number] except did take an ibuprofen occasionally. He was admitted to telemetry unit for continuation of care after discussing with the on-call neurologist attending. Admission Exam Per Admitting Provider Physical Exam: Bandage of the bed without any acute distress Constitutional: average body habitus; not ill appearing Eyes: PERRL, conjunctivae normal, anicteric sclerae ENMT: external ear and nose normal, oropharynx normal Neck: trachea midline, no thyromegaly Respiratory: normal respiratory effort, lungs clear to auscultation Cardiovascular: Rate/Rhythm: regular rate and regular rhythm; not tachycardic Heart Sounds: normal S1 and normal S2; no murmur Extremities: no edema Gastrointestinal (Abdomen): Inspection/Auscultation: normal bowel sounds; abdomen not distended Percussion/Palpation: abdomen soft; abdomen nontender Musculoskeletal: No acute arthritis involving any of the joint Skin: no rashes, warm and dry Neurologic: normal touch/pain/proprioception and moves all extremities; no focal motor deficits Visual examination ongoing for depression normal. Left visual field shows scotomas. Psychiatric: A+Ox3, euthymic affect Lymphatic: no cervical or axillary lymphadenopathy Principal Diagnosis Left eye partial vision loss, likely central retinal vein obstruction Discharge Exam Bandage of the bed without any acute distress Constitutional average body habitus; not ill appearing Eyes PERRL, conjunctivae normal, anicteric sclerae ENMT external ear and nose normal, oropharynx normal Neck trachea midline, no thyromegaly Respiratory normal respiratory effort, lungs clear to auscultation Cardiovascular Rate/Rhythm: regular rate and regular rhythm; not tachycardic Heart Sounds: normal S1 and normal S2; no murmur Extremities: no edema Gastrointestinal (Abdomen) Inspection/Auscultation: normal bowel sounds; abdomen not distended Percussion/Palpation: abdomen soft; abdomen nontender Skin no rashes, warm and dry Neurologic normal touch/pain/proprioception and moves all extremities; no focal motor deficits Psychiatric A+Ox3, euthymic affect Lymphatic no cervical or axillary lymphadenopathy Discharge Data Allergies Allergy/AdvReac Type Severity Reaction Status Date / Time amoxicillin Allergy Hives Verified 02/09/23 16:19 Consultations 10/17/24 17:12 ED Decision to Admit Stat 10/18/24 07:06 Consult Neurology Routine Ordered Studies 10/17/24 11:47 CT angio head w con Stat CT angio neck with con Stat CT head/brain wo con Stat 10/17/24 18:18 MRI Brain [MR brain wo/w con] Urgent 10/17/24 19:04 MRI Orbit [MR orbit wo/w con] Stat Hospital Course (1) Vision loss, left eye: Presented with loss of vision in left eye without any other signs and or symptoms of stroke. 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 Retinal scan showed possible lesion involving retinal vasculature near to the optic disc--could be a small clot, minor hemorrhage or cholesterol crystals Differential could be strokelike symptoms Will get MRI of the brain with and without contrast, echo of the heart, lipid profile So far CTA of the head and neck have been unremarkable Coagulation studies have been sent Neuroconsult will be placed and depending on the results of the MRI we will start aspirin and/or Plavix Will start some intravenous fluid to avoid any contrast-induced nephropathy Has had MRI of the brain which was unremarkable and MRI of the orbit seems to be okay as per her neurologist in [place] Lipid profile was unremarkable Echo Showednormal LV wall thickness and function with EF 55 to 60%, LV wall motion is normal, no significant valvular disease, the interatrial septum was evaluated with administration of agitated saline contrast and the contrast injection was suboptimal and limited resolution noted but there does seem to be suggestive of at least mild right to left interatrial shunt.--Likely not the cause for central retinal vein occlusion He will be discharged home this afternoon Outpatient pump servicer helper will be contacting him for an appointment as soon as tomorrow He was advised not to take any aspirin DVT prophylaxis SCDs CODE STATUS Full Total Time Total Time Spent Total Time Spent (In Minutes): 35 Minutes Discharge Plan Discharge Items Patient Disposition: Home - Self-Care Reason For Visit: LEFT EYE VISION LOSS Discharge Diagnosis: Left eye partial vision loss, likely central retinal vein obstruction Condition on Discharge: Fair Activity: Resume your previous activity Non-emergency contact: Primary Care Provider Call non-emergency contact if: you have any medication questions and your symptoms worsen Follow-up/Referrals: PCP,NO [Primary Care Provider] - ( [facility] ophthalmology clinic will give you a call tomorrow with an appointment. You will be also called with an appointment with a new PCP with in 7 days ) Diet: Regular Addtl Attending Provider Instructions: Do not take any aspirin until being seen by pump servicer helper Take it easy for the next few days Please keep appointments with your healthcare provider Pending Studies at Discharge: Yes Studies:: Hypercoagulable workup Stand-Alone Forms: My [employer], Smoking Cessation Medications and DC Order Prescriptions: Continued cetirizine [Zyrtec] 10 mg Tablet 10 mg PO DAILY PRN (Reason: allergies) ibuprofen 200 mg Tablet 200 mg PO DIRECTED PRN (Reason: Pain) Rx Instructions: otc Discharge Orders: Discharge Order (Routine); Ordered 10/18/24 Ordered By: Agus Spear Admission Data Admit Date/Time: 10/17/24 17:52 Attending Provider: Agus Spear Admit Provider: Agus Spear Primary Care Provider: PCP,NO Other Providers: Agus Spear; Francy Giron; Emmett Crockett; Francy Etienne; Steve Nuno; Inocente Castano; Uri Walker; Will Fried; Jacqueline Quezada; Abilio Canela; Evelio Grimes; Jose Ansari; Rahul River; Maryann Luevano; Allison Parnell; Will Lemon; Mariel Mariano Other Interventions: Discharge Summary Assessment (RN) Last Done: 10/18/24 15:04
--- NOTE | 2024-10-19 07:18 | Electrocardiogram Report ---
Test Reason : Blood Pressure : */* mmHG Vent. Rate : 70 BPM Atrial Rate : 70 BPM P-R Int : 160 ms QRS Dur : 92 ms QT Int : 368 ms P-R-T Axes : 46 73 54 degrees QTcB Int : 397 ms Normal sinus rhythm Normal ECG No previous ECGs available Baseline wander Confirmed by Carine Gonzalez (Harvey) on 10/19/2024 7:18:11 AM Referred By: REFERRED SELF Confirmed By: Carine Gonzalez
--- NOTE | 2024-10-19 09:31 | Magnetic Resonance Report ---
EXAM: MR orbit wo/w con CLINICAL HISTORY: R/O thrombosis TECHNIQUE: Multiplanar multisequence MRI of the orbits without and with gadolinium, fat-suppressed technique. COMPARISON: None. FINDINGS: Globes: Normal size and shape of both globes. No evidence of intraocular masses or lesions. No retinal detachment or vitreous hemorrhage. Optic Nerves: Normal size, signal intensity, and enhancement of both optic nerves. No evidence of optic neuritis or other abnormalities. Extraocular Muscles: Normal size and signal intensity of the extraocular muscles bilaterally. No evidence of muscle enlargement or abnormal enhancement. Orbits: Normal appearance of the orbital fat. No evidence of orbital masses or abnormal fluid collections. No proptosis or enophthalmos. Lacrimal Glands: Normal size and signal intensity of both lacrimal glands. No masses or abnormal enhancement. Bony Orbits: Normal alignment and signal intensity of the bony orbits. No fractures, lytic or sclerotic lesions. Sinuses: Clear paranasal sinuses. No evidence of sinusitis or mucosal thickening. Intracranial Structures: Normal appearance of the visualized portions of the brain. No evidence of intracranial masses, hemorrhage, or abnormal enhancement. IMPRESSION: 1. Normal MRI of the orbits with and without contrast. 2. No evidence of significant abnormalities. Electronically signed by Jeremie Baker 10-18-2024 01:20 AM
[2024-10-24 11:43] LABS: Anti Cardiolipin Ab IgG <2.0 GPL-U/mL; Anti Cardiolipin Ab IgM <2.0 MPL-U/mL; B2 Glycoprotein IgG <2.0 U/mL (<20.0); B2 Glycoprotein IgM <2.0 U/mL (<20.0)
[2024-10-24 11:53] LABS: PTT LA Screen 39 sec (<=40)
[2024-10-27 04:17] LABS: Factor 5 Mutation NEGATIVE
== END 2024-10-18 15:24 | disposition home or self-care (01) ==
LOC: ED 11:22 → EDINP 17:52 → 4W 20:18